=== PATIENT | male | born 1970 | race American Indian/Alaskan Native ===

== ENCOUNTER 2016-11-22 13:02 | Emergency (ER) | payer MEDICAID ==
[2016-11-22 13:02] VITALS: BMI 33.8
[2016-11-22 13:10] VITALS: TEMP 98.3; O2SAT 100
--- NOTE | 2016-11-22 13:28 | C.PDOC ---
History Of Present Illness 46 yr old male presents to the ER with complaints of sore throat for the past 2 days. Patient denies fever, chest pain, SOB, cough, nausea, vomiting or neck pain. Time Seen by Provider: 11/22/16 13:09 Chief Complaint (Nursing): ENT Problem History Per: Patient History/Exam Limitations: None Onset/Duration Of Symptoms: Days (2) Past Medical History Reviewed: Historical Data, Nursing Documentation, Vital Signs Vital Signs: Last Vital Signs Temp 98.3 F 11/22/16 13:08 Pulse 78 11/22/16 13:08 Resp 14 11/22/16 13:08 BP 111/69 11/22/16 13:08 Pulse Ox 100 11/22/16 14:39 Family History: States: No Known Family Hx - Social History Hx Tobacco Use: No Hx Alcohol Use: No Hx Substance Use: No - Immunization History Hx Tetanus Toxoid Vaccination: No Hx Influenza Vaccination: No Hx Pneumococcal Vaccination: No Review Of Systems Except As Marked, All Systems Reviewed And Found Negative. Constitutional: Negative for: Fever ENT: Positive for: Throat Pain (Sore throat ) Cardiovascular: Negative for: Chest Pain Respiratory: Negative for: Cough, Shortness of Breath Gastrointestinal: Negative for: Nausea, Vomiting Musculoskeletal: Negative for: Neck Pain Physical Exam - Physical Exam Appears: Non-toxic, No Acute Distress Skin: Warm, Dry, No Rash Head: Atraumatic, Normacephalic Oral Mucosa: Moist Throat: Erythema, No Exudate Neck: Normal, Normal ROM, Supple Lymphatic: No Adenopathy Chest: Symmetrical, No Tenderness Cardiovascular: Rhythm Regular, No Murmur Respiratory: Normal Breath Sounds, No Rales, No Rhonchi, No Stridor, No Wheezing Extremity: Normal ROM, No Swelling Neurological/Psych: Oriented x3, Normal Speech, Normal Motor ED Course And Treatment O2 Sat by Pulse Oximetry: 100 (RA ) Pulse Ox Interpretation: Normal Medical Decision Making Medical Decision Making: PLAN: * Rapid Strep * Tylenol PO * decadron po pt reassesed: speaking full sentences in nad. no unilateral swelling, uvula swelling, hot potato voice. 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 advise outpt f/u and return precautions. Disposition - Disposition Referrals: Torsten Worthington MD [Staff Provider] - Disposition: HOME/ ROUTINE Disposition Time: 14:38 Condition: STABLE Additional Instructions: please see specialist/your doctor. return to er with worsening symptoms or concerns. Instructions: Pharyngitis (ED) Forms: [employer] (Bengali) - Clinical Impression Clinical Impression: Acute pharyngitis - Scribe Statement The provider has reviewed the documentation as recorded by the Ghassan Bliss Provider Attestation: All medical record entries made by the Ghassan were at my direction and personally dictated by me. I have reviewed the chart and agree that the record accurately reflects my personal performance of the history, physical exam, medical decision making, and the department course for this patient. I have also personally directed, reviewed, and agree with the discharge instructions and disposition.
[2016-11-22 14:45] VITALS: BP 118/68; PULSE 72; RESP 18
== END 2016-11-22 14:45 | disposition home or self-care (01) ==
LOC: C.ER 13:02
DX: J02.9 Acute pharyngitis, unspecified (principal)
CPT/HCPCS: 87070; 87430; 99283; J8540

== ENCOUNTER 2017-04-25 16:52 | Emergency (ER) | payer MEDICAID ==
[2017-04-25 16:52] VITALS: BMI 33.8
[2017-04-25] MEDS ORDERED: Dexamethasone 10 MG in Sodium Chloride 0.9% 50 ML IV ONE (17:30)
[2017-04-25] MEDS ORDERED: Clindamycin 600 MG in Sodium Chloride 0.9% 100 ML IV STA (17:30)
--- NOTE | 2017-04-25 17:49 | C.PDOC ---
History Of Present Illness <Tanya Weir - Last Filed: 04/25/17 17:56> <Cindy Conley - Last Filed: 04/25/17 22:55> 46 y/o male presents to ED with complaints of sore throat with associated voice change for 3 days. Patient denies drainage, fever, chills, cough, nausea, vomiting or any other complaints at this time. (Tanya Weir) History Per: Patient History/Exam Limitations: None Onset/Duration Of Symptoms: Days Current Symptoms Are (Timing): Still Present Quality (Mouth/Throat): Swelling <Tanya Weir - Last Filed: 04/25/17 17:56> <Cindy Conley - Last Filed: 04/25/17 22:55> Chief Complaint (Nursing): ENT Problem Past Medical History Reviewed: Historical Data, Nursing Documentation, Vital Signs - Medical History PMH: No Chronic Diseases Surgical History: No Surg Hx Family History: States: No Known Family Hx - Social History Hx Tobacco Use: No Hx Alcohol Use: Yes Hx Substance Use: Yes - Immunization History Hx Tetanus Toxoid Vaccination: No Hx Influenza Vaccination: No Hx Pneumococcal Vaccination: No <Tanya Weir - Last Filed: 04/25/17 17:56> Vital Signs: Last Vital Signs Temp 98.9 F 04/25/17 21:56 Pulse 80 04/25/17 21:56 Resp 18 04/25/17 21:56 BP 123/80 04/25/17 21:56 Pulse Ox 97 04/25/17 21:56 Review Of Systems Constitutional: Negative for: Fever, Chills ENT: Positive for: Throat Pain, Throat Swelling Cardiovascular: Negative for: Chest Pain Respiratory: Negative for: Cough, Shortness of Breath Skin: Negative for: Rash <Tanya Weir - Last Filed: 04/25/17 17:56> Physical Exam - Physical Exam Appears: Non-toxic, No Acute Distress Skin: Warm, Dry, No Rash Head: Atraumatic, Normacephalic Eye(s): bilateral: Normal Inspection Ear(s): Bilateral: Normal Oral Mucosa: Moist Throat: Erythema, Other (uvula deviated to right of midline. Lr of tissue swelling to left peritonsillar area) Neck: Supple Cardiovascular: Rhythm Regular Respiratory: Normal Breath Sounds, No Rales, No Rhonchi, No Wheezing Gastrointestinal/Abdominal: Soft, No Tenderness, No Guarding, No Rebound Neurological/Psych: Oriented x3 <Tanya Weir - Last Filed: 04/25/17 17:56> ED Course And Treatment O2 Sat by Pulse Oximetry: 100 (RA) Pulse Ox Interpretation: Normal <Tanya Weir - Last Filed: 04/25/17 17:56> - Laboratory Results Result Diagrams: 04/25/17 17:47 04/25/17 17:47 - CT Scan/US CT neck Other Rad Studies (CT/US): Read By Radiologist, Radiology Report Reviewed CT/US Interpretation: IMPRESSION: Enlarged tonsils and adenoids with left tonsillar abscesses;. effacement and mass effect on the adjacent airway, no airway obstruction; mild. retropharyngeal edema; adenopathy. . Additional nonemergent findings as described above. - Physician Consult Information Physician Contacted: Marco Dumont (ENT) Outcome Of Conversation: He wants pt admitted to the hospital on medical service and received IV antibiotics and he will see him tomorrow. <Cindy Conley E - Last Filed: 04/25/17 22:55> Medical Decision Making <Tanya Weir - Last Filed: 04/25/17 17:56> <Cindy Conley E - Last Filed: 04/25/17 22:55> Medical Decision Making: Impression- Peritonsillar Abscess Plan: CT scan and pending ENT evaluation Progress: Called and wants CT scan results prior to evaluating patient (Tanya Weir) Disposition <Tanya Weir - Last Filed: 04/25/17 17:56> Discussed With : Eriberto Hammond Comment: He accepted pt on his service. Doctor Will See Patient In The: Hospital Counseled Patient/Family Regarding: Studies Performed, Diagnosis - Disposition Disposition Time: 22:55 <Cindy Conley E - Last Filed: 04/25/17 22:55> - Disposition Disposition: HOSPITALIZED Condition: GUARDED - Clinical Impression Clinical Impression: Tonsillar abscess - Scribe Statement The provider has reviewed the documentation as recorded by the Scribe <Tanya Weir - Last Filed: 04/25/17 17:56> <Cindy Conley E - Last Filed: 04/25/17 22:55> - Scribe Statement Jillianimaniguzman Rouseta All medical record entries made by the Scribe were at my direction and personally dictated by me. I have reviewed the chart and agree that the record accurately reflects my personal performance of the history, physical exam, medical decision making, and the department course for this patient. I have also personally directed, reviewed, and agree with the discharge instructions and disposition. (Tanya Weir)
[2017-04-25] MEDS ORDERED: Dexamethasone 4 mg/1 ml ONE (17:50)
[2017-04-25 17:55] LABS: BASO # 0.1 K/uL (0.0-0.2); BASO % 0.5 % (0.0-2.0); EOS % 0.2 % (0.0-4.0); LYMPH # 1.6 K/uL (1.0-4.3); LYMPH % 14.1 % (20.0-40.0); MEAN CELL VOLUME 94.7 fL (80.0-94.0); MEAN CORPUSCULAR HEMOGLOBIN 32.5 pg (27.0-31.0); MEAN CORPUSCULAR HGB CONC 34.4 g/dL (33.0-37.0); MEAN PLATELET VOLUME 7.9 fL (7.2-11.7); MONO # 1.6 K/uL (0.0-0.8); MONO % 14.4 % (0.0-10.0); NEUT # 7.9 K/uL (1.8-7.0); NEUT % 70.8 % (50.0-75.0); RBC 4.62 Mil/uL (4.40-5.90); RED CELL DISTRIBUTION WIDTH 13.5 % (11.5-14.5); WHITE BLOOD COUNT 11.2 K/uL (4.8-10.8)
[2017-04-25] MEDS ORDERED: Clindamycin 600mg/50ml NS 600 MG/50 ML BAG IVPB ONE (18:00)
[2017-04-25 18:10] LABS: ALB/GLOB RATIO 0.9 (1.0-2.1); ALBUMIN 4.2 g/dL (3.5-5.0); ALT/SGPT 38 U/L (21-72); AST/SGOT 27 U/L (17-59); BLOOD UREA NITROGEN 12 mg/dL (9-20); CALCIUM 9.1 mg/dl (8.6-10.4); GFR AFRICAN-AMERICAN > 60; GFR NON-AFRICAN AMERICAN > 60
[2017-04-25] MEDS ORDERED: Iohexol 300 100 ML IJ ONE (18:43)
--- NOTE | 2017-04-25 21:37 | CT ---
EXAM: CT Neck With Intravenous Contrast EXAM DATE/TIME: 04/25/2017 5:29 PM CLINICAL HISTORY: 46 years old, male; Signs and symptoms; Mass, lump, or swelling in neck and other: Sore throat and voice disturbance; Additional info: Peritonsillar abscess TECHNIQUE: Axial computed tomography images of the neck with intravenous contrast. All CT scans at this facility use one or more dose reduction techniques, viz.: automated exposure control; ma/kV adjustment per patient size (including targeted exams where dose is matched to indication; i.e. head); or iterative reconstruction technique. Coronal and sagittal reformatted images were created and reviewed. CONTRAST: 100 mL of omnipaque 300 administered intravenously. COMPARISON: There are no prior studies for comparison. FINDINGS: Brain: No acute abnormalities are seen in visualized portion of the brain. Sinuses: There is no acute sinusitis. Ears and mastoids: Middle ears and mastoids are unremarkable Orbits: Orbital contents are unremarkable. Artifacts: There is streak artifact from a nose ring. Streak artifact from dental fillings degrades image quality. Tonsils and adenoids: There is prominence of the adenoids. There is prominence of right tonsils. There is enlargement of left tonsils. There is a 2 x 3 x 3 cm left tonsillar abscess, image 28 series 2, image 61 series 602. There is a smaller 1.3 x 1.2 by 1.2 cm left tonsillar abscess, image 38 series 2, image 65 series 602. It is unclear if the abscesses communicate. Deep facial spaces: Right parapharyngeal space is unremarkable. There is edema in the left parapharyngeal space. There is minimal retropharyngeal edema. Salivary glands: Parotid and submandibular glands are unremarkable. Dental: There is subtle apical erosions about multiple teeth. Airway: Nasopharynx is unremarkable. Enlarged tonsils and adenoids encroachment on the oropharyngeal airway. Airway is displaced to the right. There is mild mass effect on the hypopharynx. There is partial effacement of the left vallecula and pyriform sinus. Epiglottis and aryepiglottic folds are unremarkable. Thyroid: Thyroid is heterogeneous with a right nodule. Vascular: Vascular structures are unremarkable. Nodes: There is bilateral cervical adenopathy. There are multiple enlarged facial nodes area in Lung apices: Lung apices are clear. Bony structures: There degenerative changes in the spine. IMPRESSION: Enlarged tonsils and adenoids with left tonsillar abscesses; effacement and mass effect on the adjacent airway, no airway obstruction; mild retropharyngeal edema; adenopathy Additional nonemergent findings as described above.
[2017-04-25] MEDS ORDERED: Clindamycin 600 MG in Sodium Chloride 0.9% 100 ML IV SCH (23:00)
[2017-04-26] MEDS ORDERED: Lidocaine 2% w Epi 1:100,000 Inj IJ ONE (00:39)
[2017-04-26] MEDS: Clindamycin 600mg/50ml NS 600 MG/50 ML BAG IVPB SCH ×2 (01:24→10:10)
[2017-04-26] MEDS ORDERED: Clindamycin 600mg/50ml NS 600 MG/50 ML BAG IVPB ONE (10:09)
[2017-04-26 12:18] VITALS: BP 118/90; PULSE 68; RESP 16; TEMP 98.8; O2SAT 98
--- NOTE | 2017-04-26 12:18 | OP ---
PROCEDURE DATE: 04/26/2017 PREOPERATIVE DIAGNOSIS: Peritonsillar abscess. POSTOPERATIVE DIAGNOSIS: Peritonsillar abscess. PROCEDURE: Incision and drainage of peritonsillar abscess. SIGNIFICANT FINDINGS: Peritonsillar abscess. DESCRIPTION OF PROCEDURE: The patient was placed in a seated position. The left peritonsillar area was injected with lidocaine with epinephrine. Incision was made in the left peritonsillar area. Clamp dissection was done. Pus was noted coming out. Loculations were broken with clamp. Bleeding was controlled with time. The patient tolerated the procedure well. Marco Dumont MD MTDD
--- NOTE | 2017-04-26 23:18 | CP.PCM.DIS ---
Provider - Provider Date of Admission: 04/25/17 22:56 Attending physician: Eriberto Hammond MD Diagnosis - Discharge Diagnosis (1) Acute pharyngitis Status: Acute (2) Tonsillar abscess Status: Acute Hospital Course - Lab Results Lab Results: Most Recent Lab Values WBC 11.2 K/uL (4.8-10.8) H D 04/25/17 17:47 RBC 4.62 Mil/uL (4.40-5.90) 04/25/17 17:47 Hgb 15.0 g/dL (12.0-18.0) 04/25/17 17:47 Hct 43.8 % (35.0-51.0) 04/25/17 17:47 MCV 94.7 fL (80.0-94.0) H 04/25/17 17:47 MCH 32.5 pg (27.0-31.0) H 04/25/17 17:47 MCHC 34.4 g/dL (33.0-37.0) 04/25/17 17:47 RDW 13.5 % (11.5-14.5) 04/25/17 17:47 Plt Count 228 K/uL (130-400) 04/25/17 17:47 MPV 7.9 fL (7.2-11.7) 04/25/17 17:47 Neut % (Auto) 70.8 % (50.0-75.0) 04/25/17 17:47 Lymph % (Auto) 14.1 % (20.0-40.0) L 04/25/17 17:47 Bent % (Auto) 14.4 % (0.0-10.0) H 04/25/17 17:47 Eos % (Auto) 0.2 % (0.0-4.0) 04/25/17 17:47 Baso % (Auto) 0.5 % (0.0-2.0) 04/25/17 17:47 Neut # (Auto) 7.9 K/uL (1.8-7.0) H 04/25/17 17:47 Lymph # (Auto) 1.6 K/uL (1.0-4.3) 04/25/17 17:47 Bent # (Auto) 1.6 K/uL (0.0-0.8) H 04/25/17 17:47 Eos # (Auto) 0.0 K/uL (0.0-0.7) 04/25/17 17:47 Baso # (Auto) 0.1 K/uL (0.0-0.2) 04/25/17 17:47 Sodium 138 mmol/L (132-148) 04/25/17 17:47 Potassium 3.7 mmol/L (3.6-5.2) 04/25/17 17:47 Chloride 95 mmol/L (98-107) L 04/25/17 17:47 Carbon Dioxide 30 mmol/L (22-30) 04/25/17 17:47 Anion Gap 17 (10-20) 04/25/17 17:47 BUN 12 mg/dL (9-20) 04/25/17 17:47 Creatinine 1.0 mg/dL (0.8-1.5) 04/25/17 17:47 Est GFR ( Amer) > 60 04/25/17 17:47 Est GFR (Non-Af Amer) > 60 04/25/17 17:47 Random Glucose 104 mg/dL (75-110) 04/25/17 17:47 Calcium 9.1 mg/dl (8.6-10.4) 04/25/17 17:47 Total Bilirubin 1.0 mg/dL (0.2-1.3) 04/25/17 17:47 AST 27 U/L (17-59) 04/25/17 17:47 ALT 38 U/L (21-72) 04/25/17 17:47 Alkaline Phosphatase 58 U/L (38-126) 04/25/17 17:47 Total Protein 8.7 g/dL (6.3-8.3) H 04/25/17 17:47 Albumin 4.2 g/dL (3.5-5.0) 04/25/17 17:47 Globulin 4.5 gm/dL (2.2-3.9) H 04/25/17 17:47 Albumin/Globulin Ratio 0.9 (1.0-2.1) L 04/25/17 17:47 Discharge Plan - Follow Up Plan Condition: GUARDED Disposition: HOME/ ROUTINE Instructions: Peritonsillar Abscess (ED)
--- NOTE | 2017-04-26 23:18 | CP.PCM.HP ---
History of Present Illness - History of Present Illness History of Present Illness: 46 y/o male presents to ED with complaints of sore throat with associated voice change for 3 days. Patient denies drainage, fever, chills, cough, nausea, vomiting or any other complaints at this time Past Patient History - Past Social History Smoking Status: Never Smoked - PSYCHIATRIC Hx Substance Use: Yes - SURGICAL HISTORY Hx Surgeries: Yes Hx Herniorrhaphy: Yes - ANESTHESIA Hx Anesthesia: Yes Meds Allergies/Adverse Reactions: Allergies Allergy/AdvReac Type Severity Reaction Status Date / Time Penicillins Allergy Unknown Verified 04/25/17 17:09 Results - Vital Signs Recent Vital Signs: Last Vital Signs Temp 98.8 F 04/26/17 12:16 Pulse 68 04/26/17 12:16 Resp 16 04/26/17 12:16 BP 118/90 04/26/17 12:16 Pulse Ox 98 04/26/17 12:16 - Labs Result Diagrams: 04/25/17 17:47 04/25/17 17:47 Assessment & Plan (1) Acute pharyngitis Status: Acute (2) Tonsillar abscess Status: Acute
== END 2017-04-26 11:48 | disposition home or self-care (01) ==
LOC: C.ER 16:52 → UNDOADMIN 22:56 → C.9E 22:56 → C.ER 04-26 11:48 → C.9E 04-26 14:30 → C.6T 04-26 14:30 → C.9E 04-26 14:42 → C.6T 04-26 14:42 → UNDODISIN 04-26 14:43
DX: J36 Peritonsillar abscess (principal)
CPT/HCPCS: 42700; 70491; 80053; 85025; 96365; 96366; 96368; 99285; J1100; Q9967